=== PATIENT | female | born 1990 | race Two or more races ===

== ENCOUNTER 2024-12-01 16:15 | Emergency (ER) | payer MEDICAID, SELFPAY ==
[2024-12-01 16:24] VITALS: BP 123/88; PULSE 78; RESP 18; TEMP 36.6; O2SAT 100; BMI 25.0
--- NOTE | 2024-12-01 16:47 | EDNOTE_ITS ---
ED Skin Abcess FB-RME/HPI General Stated complaint: MEDICAL CLEARANCE Time Seen by Provider: 12/01/24 16:45 Source: patient Arrival date/time: 12/01/24 16:15 34-year-old female with no known medical history presents to the emergency room with a chief complaint of a foreign body in her vagina. Patient states she had sex with a partner 4 days ago and believes there might be a condom stuck in there. Mode of arrival: ambulatory Limitations: no limitations Related Data Home Medications ?Medication ?Instructions ?Recorded ?Confirmed Vitamin * 1 tab PO QDAY #0 tabs Previous Rx's ?Medication ?Instructions ?Recorded LABETALOL HCL (NORMODYNE) 1 tab PO Twice a day #60 tab s 03/08/16 Allergies Allergy/AdvReac Type Severity Reaction Status Date / Time No Known Allergies Allergy Unknown Verified 03/06/16 02:59 Review of Systems Review of Systems Systems Reviewed: All systems reviewed, normal except as documented Constitutional Constitutional: Reports system reviewed and no additional complaints, except as documented, Denies fatigue, Denies fever(s), Denies headache(s) and Denies weakness Eyes Eyes: Reports system reviewed and no additional complaints, except as documented, Denies blurry vision and Denies change in vision ENT Ears, Nose, Mouth, and Throat: Reports system reviewed and no additional complaints, except as documented, Denies otalgia, Denies headache(s), Denies nasal congestion, Denies throat swelling and Denies vertigo Cardiovascular Cardiovascular: Reports system reviewed and no additional complaints, except as documented, Denies chest pain, Denies dyspnea and Denies dyspnea on exertion Respiratory Respiratory: Reports system reviewed and no additional complaints, except as documented, Denies chest congestion, Denies cough, Denies dyspnea, Denies dyspnea on exertion and Denies wheezing Gastrointestinal Gastrointestinal: Reports system reviewed and no additional complaints, except as documented, Denies abdominal pain, Denies cramping, Denies nausea and Denies vomiting Genitourinary Genitourinary: Reports system reviewed and no additional complaints, except as documented Musculoskeletal Musculoskeletal: Reports system reviewed and no additional complaints, except as documented and Denies back pain Integumentary/Breasts Skin/Breast: Reports system reviewed and no additional complaints, except as documented and Denies wounds Neurologic Neurologic: Reports system reviewed and no additional complaints, except as documented, Denies confusion, Denies headache(s), Denies lack of coordination, Denies vertigo and Denies weakness Psychiatric Psychiatric: Reports system reviewed and no additional complaints, except as documented, Denies anxiety, Denies confusion, Denies depression, Denies paranoia, Denies suicidal ideation and Denies tactile hallucinations Endocrine Endocrine: Reports system reviewed and no additional complaints, except as documented and Denies fatigue Hematologic/Lymphatic Hematologic/Lymphatic: Reports system reviewed and no additional complaints, except as documented and Denies lymphadenopathy Allergic/Immunologic Allergic/Immunologic: Reports system reviewed and no additional complaints, except as documented, Denies throat swelling, Denies urticaria and Denies wheezing ED Exam General Limitations: Present no limitations General appearance: Present alert and in no apparent distress Head Head exam: Present atraumatic Eye Eye exam: Present normal appearance, PERRL and EOMI ENT ENT exam: Present normal exam, normal oropharynx and mucous membranes moist Neck Neck exam: Present normal inspection, full ROM and trachea midline Chest Chest inspection: Present normal inspection and symmetric chest wall rise Respiratory Respiratory exam: Present normal lung sounds bilaterally Cardiovascular Cardiovascular exam: Present regular rate, normal rhythm and normal heart sounds Abdominal Exam Abdominal exam: Present soft and normal bowel sounds Speculum exam: Present normal speculum exam; Absent foreign body Extremities Exam Extremities exam: Present normal inspection and full ROM Back Exam Back exam: Present normal inspection and full ROM Neurological Exam Neurological exam: Present alert, oriented X3 and CN II-XII intact Psychiatric Psychiatric exam: Present normal affect and normal mood Skin Skin exam: Present warm, dry, intact and normal color Course Quality Measures none Vital Signs Vital signs: Vital Signs Temperature 97.9 F 12/01/24 16:24 Pulse Rate 78 12/01/24 16:24 Respiratory Rate 18 12/01/24 16:24 Blood Pressure 123/88 H 12/01/24 16:24 Pulse Oximetry (%) 100 12/01/24 16:24 Oxygen Delivery Method Room Air 12/01/24 16:24 Skin / Abscess / Foreign Body MDM Narrative MDM Narrative:: 34-year-old female with no known medical history presents to the emergency room with a chief complaint of a foreign body in her vagina. Patient states she had sex with a partner 4 days ago and believes there might be a condom stuck in there. Patient is a medical clearance for snf. Patient is hemodynamically stable and in no apparent distress A speculum examination was completed and there is no foreign body in the vagina. The patient is currently on her menses. Patient was discharged and educated to follow-up with primary care provider and return to the emergency room for any evidence of worsening signs or symptoms Patient data External records reviewed:: [facility] previous records Clinical information provided by:: patient Social determinants that could affect healthcare access:: none Patient has the following chronic illnesses:: No chronic illness How is presenting disease/condition affected by chronic disease/condition?: no chronic disease Evaluation data The following diagnostics were reviewed and interpreted by me:: lab results and radiology exam(s) Lab and/or radiology exams considered but not ordered:: Labs and radiology exams considered and ordered Interpretation Summary: N/A Medications / Prescriptions Medications or Prescriptions considered but not ordered:: Medication not given Medication administrations:: N/A Consultations Consultation(s) initiated? (list below): No Diagnosis Skin/Abscess Differential Diagnosis: other (Foreign body in vagina) Most likely diagnosis given after review of the tests above:: Foreign body in vagina Admission Indicated Admission indicated?: not indicated Admission Request Was there a request for admission?: No Disposition Plan Disposition Plan: Discharge Discharge Attestation Discharge Attestation: The patient and all family members were given an opportunity to ask questions and understood the discharge instructions. Discharge instructions specifically effects, indications for sooner follow up or return to the emergency department, and the expected course of current diagnosis. Patient condition: Stable Discharge Plan Plan Patient Disposition: HOME (Self Care) Disposition Comment: Stable Prescriptions/Referrals Prescriptions/Med Rec: No Action Vitamin * 1 EACH tablet 1 tab PO QDAY Qty: 0 LABETALOL HCL (NORMODYNE) 100 MG tablet 1 tab PO Twice a day Qty: 60 1RF Problem List Clinical Impression: Foreign body in vagina Patient/Caregiver Discharge Instructions Education Materials: ED FOREIGN BODY Vaginal Adult Additional Instructions: Vaginal examination was completed and there was no foreign body in the vagina For any evidence of worsening signs or symptoms return to the emergency room immediately Print Language: Citizen Of [place] Stand Alone Forms: Lindsay Award Info., Patient Portal Info Letter PA/AIR CONDITIONING SUPERVISOR Supervising Physician PA/AIR CONDITIONING SUPERVISOR Supervising Physician: Dr Valenzuela
== END 2024-12-01 17:02 ==
PROVIDERS: Emergency Provider Emergency Medicine
DX: Z02.89 Encounter for other administrative examinations (principal); T19.2XXA Foreign body in vulva and vagina, initial encounter; W44.9XXA Unspecified foreign body entering into or through a natural orifice, initial encounter
CPT/HCPCS: 99281